=== PATIENT | female | born 1990 | race Caucasian/White ===

== ENCOUNTER 2016-05-23 14:15 | Outpatient (CLI) | payer OTHER ==
[2015-03-23 23:50] VITALS: BP 142/86
--- NOTE | 2016-05-23 17:59 | Diagnostic Imaging Report ---
MARIA C RASHID [facility] [address] [facility] [address] [address] Report Submission Date: May 23, 2016 5:14:17 PM GOLF COURSE ARCHITECT Patient Study Name: BHAVIN DRISCOLL Date: May 23, 2016 2:56:26 PM GOLF COURSE ARCHITECT Modality Type: CR Gender: F Description: SPINE : 86 Institution: [facility] Physician: MARIA C RASHID Cervical spine 3 views History: Acute neck pain Findings: The the cervical spine is unremarkable without fracture, disc space narrowing, subluxation, or prevertebral soft tissue swelling. Electronically signed on May 23, 2016 5:14:17 PM GOLF COURSE ARCHITECT by: Denver TIAN
--- NOTE | 2016-05-23 18:00 | Diagnostic Imaging Report ---
MARIA C RASHID [facility] [address] [facility] [address] [address] Report Submission Date: May 23, 2016 5:13:41 PM CHRISTIAN EDUCATION DIRECTOR Patient Study Name: BHAVIN DRISCOLL Date: May 23, 2016 3:09:22 PM CHRISTIAN EDUCATION DIRECTOR Modality Type: CR Gender: F Description: SHOULDER : 86 Institution: [facility] Physician: MARIA C RASHID Bilateral shoulders, 3 views History: Acute shoulder pain Findings: 3 views of each shoulder are obtained revealing no evidence of fracture, dislocation, arthropathy, or focal bone lesion. Impression: Unremarkable shoulders. Electronically signed on May 23, 2016 5:13:41 PM CHRISTIAN EDUCATION DIRECTOR by: Denver TIAN
== END 2016-05-23 14:16 ==
LOC: RAD 14:15
PROVIDERS: ATTEND Physician Assistant
DX: M25.512 Pain in left shoulder (principal); M54.2 Cervicalgia
CPT/HCPCS: 72040

== ENCOUNTER 2016-08-15 13:47 | Outpatient (CLI) | payer OTHER ==
[2015-03-23 23:50] VITALS: BP 142/86
--- NOTE | 2016-08-15 22:56 | Diagnostic Imaging Report ---
[facility] [address] [facility] [address] Report Submission Date: August 15, 2016 2:28:46 PM CDT Patient Study Name: BHAVIN DRISCOLL Date: August 15, 2016 1:52:17 PM CDT Modality Type: CR Gender: F Description: ABDOMEN : 86 Institution: [facility] Physician MARIA C RASHID Abdomen -two views CLINICAL HISTORY: Abdominal discomfort. Nausea and constipation for 3 weeks. FINDINGS: Examination abdomen in supine and upright views with comparison to examination of 10/19/2012 demonstrates gas and stool in the colon. There is no evidence of obstruction or free air. Visualized visceral silhouettes are within normal limits. Lung bases are clear. Properitoneal fat lines are preserved. Visualized bony structures are intact. IMPRESSION: Negative abdomen. Electronically signed on August 15, 2016 2:28:46 PM CDT by: Timi TIAN
== END 2016-08-15 13:50 ==
LOC: RAD 13:47
PROVIDERS: ATTEND Physician Assistant
DX: K59.09 Other constipation (principal); R10.10 Upper abdominal pain, unspecified
CPT/HCPCS: 74020

== ENCOUNTER 2016-09-15 14:58 | Emergency (ER) | payer OTHER ==
[2016-09-15 15:10] VITALS: BP 119/68
--- NOTE | 2016-09-15 15:43 | Diagnostic Imaging Report ---
[facility] [address] [facility] [address] Report Submission Date: Sep 15, 2016 3:34:58 PM CDT Patient Study Name: BHAVIN DRISCOLL Date: Sep 15, 2016 3:12:57 PM CDT Modality Type: CR Gender: F Description: LOWER EXTREMITY : 86 Institution: [facility] Physician: CALDERON PABON - ER Right ankle 3 views Clinical history pain Technique AP lateral and oblique radiographs of the right ankle Findings: There is no fracture /dislocation. Bone density is normal. Impression negative right ankle Electronically signed on Sep 15, 2016 3:34:58 PM CDT by: Mitchell TIAN
--- NOTE | 2016-09-15 16:12 | ED Physician Documentation ---
General Adult - HISTORIAN Historian: patient - HPI Stated Complaint: ankle pain Chief Complaint: General Adult Onset: hours Timing: still present Severity: moderate Further Comments: yes (Pt is a 26 yo female who rolled her R ankle while walking on a trail earlier today. Pt walked for several hours after the injury. ) - ROS CONST: no problems EYES/ENT: none CVS/RESP: none GI/: none MS/SKIN/LYMPH: ankle swelling (r) - PAST HX Past History: other (bipolar d/o) Surgeries/Procedures: BTL Allergies/Adverse Reactions: Allergies Allergy/AdvReac Type Severity Reaction Status Date / Time clarithromycin [From Biaxin] AdvReac Intermediate Hives Verified 03/23/15 22:31 Home Medications: Ambulatory Orders Medication Instructions Recorded Cetirizine HCl [Zyrtec] 10 mg PO DAILY u2 08/15/16 Omeprazole Magnesium [Prilosec Otc] 20 mg PO DAILY u2 08/15/16 Topiramate [Topamax] 25 mg PO BID u2 08/15/16 - SOCIAL HX Smoking History: cigarettes - FAMILY HX Family History: No - VITAL SIGNS Vital Signs: Vital Signs Temp Pulse Resp BP Pulse Ox 142/86 03/23/15 23:48 - REVIEWED ASSESSMENTS Nursing Assessment Reviewed: Yes Vitals Reviewed: Yes Progress - Progress Progress: X-ray R ankle: neg Ibuprofen 200 mg. Take 3 tablets every 8 hrs with food. Air splint. Crutches as needed. (Pt has crutches at home.) General Adult Physical Exam - PHYSICAL EXAM GENERAL APPEARANCE: mild distress NECK: normal inspection, supple RESPIRATORY: no resp distress BACK: normal inspection SKIN: warm/dry EXTREMITIES: other (R ankle tenderness, FROM) NEURO: oriented X3, motor nml, sensation nml Discharge Clincal Impression: Right ankle sprain Qualifiers: Encounter type: initial encounter Involved ligament of ankle: unspecified ligament Qualified Code(s): S93.401A - Sprain of unspecified ligament of right ankle, initial encounter Referrals: Shirley Busch PA [Primary Care Provider] - Home Medications: Ambulatory Orders Cetirizine HCl [Zyrtec] 10 mg PO DAILY u2 08/15/16 Omeprazole Magnesium [Prilosec Otc] 20 mg PO DAILY u2 08/15/16 Topiramate [Topamax] 25 mg PO BID u2 08/15/16 Condition: Stable Disposition: 01 HOME, SELF-CARE Decision to Admit: NO Decision Time: 15:46
== END 2016-09-15 15:50 | disposition home or self-care (01) ==
LOC: ED 14:58
DX: S93.401A Sprain of unspecified ligament of right ankle, initial encounter (principal); W19.XXXA Unspecified fall, initial encounter; Y93.9 Activity, unspecified; Y99.9 Unspecified external cause status
CPT/HCPCS: 73610; L4350; 99283

== ENCOUNTER 2016-10-24 16:19 | Outpatient (CLI) | payer OTHER ==
[2016-10-24 16:36] LABS: BASOPHILS % 0.5 (0.0-1.5); EOSINOPHILS % 3.1 % (0.0-6.8); MEAN CORPUSCULAR HEMOGLOBIN 29.6 pg (28.0-34.0); MEAN CORPUSCULAR VOLUME 87.6 fl (80.0-100.0); NEUTROPHILS # 5.7 # k/uL (1.4-7.7)
[2016-10-24 16:59] LABS: eGFR (African) > 60; eGFR (Non-African) > 60
== END 2016-10-24 16:20 ==
LOC: LAB 16:19
PROVIDERS: ATTEND Physician Assistant
DX: R53.83 Other fatigue (principal); R03.0 Elevated blood-pressure reading, without diagnosis of hypertension
CPT/HCPCS: 36415; 80053; 84443; 85025; 87045; 87046; 87427; 87493

== ENCOUNTER 2017-10-09 11:44 | Outpatient (CLI) | payer OTHER ==
[2017-10-09 12:46] LABS: eGFR (African) > 60; eGFR (Non-African) > 60
== END 2017-10-09 11:46 ==
LOC: LAB 11:44
PROVIDERS: ATTEND Physician Assistant
DX: R10.30 Lower abdominal pain, unspecified (principal); O92.6 Galactorrhea
CPT/HCPCS: 36415; 80053; 84146; 84443; 87086

== ENCOUNTER 2018-07-06 07:57 | Outpatient (CLI) | payer BC ==
[2018-07-06 08:26] LABS: MEAN CORPUSCULAR HEMOGLOBIN 26.3 pg (28.0-34.0)
[2018-07-06 08:27] LABS: BASOPHILS % 0.7 (0.0-1.5); EOSINOPHILS % 4.6 % (0.0-6.8); NEUTROPHILS # 3.4 # k/uL (1.4-7.7)
[2018-07-06 08:40] LABS: eGFR (Non-African) > 60
== END 2018-07-06 08:00 ==
LOC: LAB 07:57
PROVIDERS: ATTEND Family Medicine
DX: Z00.00 Encounter for general adult medical examination without abnormal findings (principal); Z20.5 Contact with and (suspected) exposure to viral hepatitis
CPT/HCPCS: 36415; 80053; 80061; 84443; 85025; 86803

== ENCOUNTER 2018-10-16 23:54 | Emergency (ER) | payer OTHER ==
--- NOTE | 2018-10-16 23:58 | ED Physician Documentation ---
Allergy Symptoms - HISTORIAN Historian: patient - HPI Stated Complaint: feels her throat is swollen Chief Complaint: Allergic Reaction Onset: hours (2) Duration: continues in ED Associated Symptoms: none Swelling: none Shortness of Breath: none Trouble Swallowing/ Speaking: moderate Identified Cause: yes Context: Food Exposure: none Where: home Further Comments: yes (She believes maybe she had some insect spray on her hands and then she had a cigarette and maybe she had some spray on her cigarette when she smoked that She feels her throat is swollen. No rash or shortnes of air.) - ROS EYES/ENT: none CVS/RESP: none GI/: none CONST: none NEURO/PSYCH: none - PAST HX Prior Allergic Reaction: none Medical History: none Immunizations: UTD Allergies/Adverse Reactions: Allergies Allergy/AdvReac Type Severity Reaction Status Date / Time clarithromycin [From Biaxin] AdvReac Intermediate Hives Verified 10/17/18 00:04 Home Medications: Ambulatory Orders Medication Instructions Recorded Omeprazole Magnesium [Prilosec Otc] 20 mg PO DAILY u2 08/15/16 Fexofenadine HCl [Adelina Allergy] 180 mg PO DAILY PRN u2 10/09/17 - SOCIAL HX Smoking History: non-smoker Alcohol Use: none Drug Use: none - FAMILY HX Family History: No - VITAL SIGNS Vital Signs: Vital Signs Temp Pulse Resp BP Pulse Ox 119/68 09/15/16 15:50 - REVIEWED ASSESSMENTS Nursing Assessment Reviewed: Yes Vitals Reviewed: Yes Progress - Progress Progress: 0053: resting quietly - although after waking she states she has no change in symptoms DG 0106: States she is feeling less swelling in throat and less tingling feeling around the lips. She is has no shortness of breath DG Allergy Symptons Exam - EXAM General Appearance: no acute distress, alert HEENT: ENT nml inspection, pharynx nml Skin: no rash Extremities: non-tender Neck: nml inspection Respiratory: no resp. distress, breath sounds nml. No: respiratory distress, stridor CVS: reg rate & rhythm, heart sounds normal Abdomen: non-tender Neuro: oriented X3, CN's nml as tested Discharge Clincal Impression: Allergic reaction Qualifiers: Encounter type: initial encounter Qualified Code(s): T78.40XA - Allergy, unspecified, initial encounter Referrals: Brittny Banda MD [Primary Care Provider] - 2 Days Comments: 1. Predisone 20 mg take 1 by mouth daily x 5 days 2. Zantac 150 mg take 1 by mouth twice daily x 5 days 3. Clairitin or zyrtec OTC take 1 by mouth daily x 5 days 4. Keep benadryl at home take as directed as needed for symptoms 5. Follow up with PCP In 2-4 days 6. Return to ER for any increasing concerns Condition: Stable Disposition: 01 HOME, SELF-CARE Decision to Admit: NO Date of Decison to Admit: 10/17/18 Decision Time: 01:30
[2018-10-17] MEDS ORDERED: diphenhydrAMINE HCL 25 MG TABLET PO ONE (00:02)
[2018-10-17] MEDS ORDERED: methylPREDNISolone SOD SUCC 125 MG/2 ML VIAL ONE (00:15)
[2018-10-17] MEDS ORDERED: methylPREDNISolone SOD SUCC 125 MG/2 ML VIAL IVP ONE (00:24)
[2018-10-17] MEDS ORDERED: diphenhydrAMINE HCL 50 MG/ML VIAL ONE (00:25)
[2018-10-17] MEDS ORDERED: diphenhydrAMINE HCL 50 MG/ML VIAL IVP ONE (00:25)
[2018-10-17 03:52] VITALS: BP 139/60
== END 2018-10-17 01:32 | disposition home or self-care (01) ==
LOC: ED 23:54
DX: T78.40XA Allergy, unspecified, initial encounter (principal)
CPT/HCPCS: 96374; 96375; 99283; 99284; J1200; Q0163; S1016

== ENCOUNTER 2018-11-20 07:57 | Outpatient (CLI) | payer OTHER ==
[2018-11-20 14:30] LABS: APPEARANCE,URINE CLEAR (CLEAR); COLOR,URINE YELLOW (YELLOW); OCCULT BLOOD,URINE TRACE-INTACT (NEGATIVE)
[2018-11-20 14:31] LABS: UROBILINOGEN URINE 0.2 Eu (0.2-1.0)
== END 2018-11-20 08:00 ==
LOC: LAB 07:57
PROVIDERS: ATTEND Family Medicine
DX: R10.9 Unspecified abdominal pain (principal)
CPT/HCPCS: 81002

== ENCOUNTER 2018-11-30 08:48 | Day surgery (SDC) | payer OTHER ==
[~2018-11-30 08:48] MED LIST: LACTATED RINGERS 1,000 ML IV.SOLN IV ONE; LIDOCAINE HCL 2% PF 100MG/5ML VIAL IJ ONE; PROPOFOL 200 MG/20 ML VIAL IV ONE
[2018-11-30] MEDS ORDERED: ONDANSETRON HCL/PF 4 MG/ 2ML VIAL ONE (09:46)
[2018-11-30] MEDS ORDERED: fentaNYL CITRATE/PF 100 MCG/2 ML INJ. ONE (09:47)
[2018-11-30] MEDS ORDERED: FAMOTIDINE 20 MG/2 ML VIAL IV ONE (09:55)
--- NOTE | 2018-12-02 13:23 | GI Report ---
DATE OF PROCEDURE: 11/30/2018 REFERRING PHYSICIAN: Dr. Banda. PROCEDURE PERFORMED: Endoscopy with biopsies. SURGEON: Macho Montes M.D., Marv. INDICATION FOR PROCEDURE: The patient is a 28-year-old who has frequent vomiting episodes. She gets bloated, uncomfortable sometimes 20 minutes after a meal. She unfortunately continues to use cigarettes, either smokes or vapes. She had endoscopy at the [facility] back in November 2016. At that time she did have some esophagitis and gastritis. Biopsies were apparently negative for H. pylori. She also had a colonoscopy at that time. The patient denies using marijuana. Her has been treated for hepatitis C. She denies being on any pain medications regularly. She does get frequent migraine headaches and usually vomits with those headaches. PROCEDURE MEDICATION: Propofol, as per Anesthesia. DESCRIPTION OF PROCEDURE: The Olympus video endoscope was passed through the esophagus under direct visualization. She has grade II esophagitis at the GE junction. She actually has a large sliding hiatal hernia about 3-4 cm size. Antrum of stomach: There is mild gastritis, biopsy taken for H. pylori even though it was negative in the past. Duodenal bulb, first and second part of the duodenum were examined and were normal. There is some bile present in the stomach. Again, there is decreased motility and a large hiatal hernia. Distal esophagitis again that was also biopsied. The patient tolerated the procedure well. FINDINGS: 1. Distal esophagitis, biopsied. 2. Large hiatal hernia. 3. Gastritis, biopsied. There was bile present. RECOMMENDATIONS: 1. Her PPI to be taken correctly needs to be 15-30 minutes before a meal such as before breakfast or before supper rather than not at bedtime. 2. She needs to sleep with the head of her bed elevated. 3. She needs to discontinue tobacco usage, with her migraines, vomiting, and bloating. 4. Would take an antacid like Gaviscon at bedtime. 5. Weight loss, 15 lbs would be markedly beneficial for her large sliding hiatal hernia. Sometimes they do reduce a little bit. 6. Further recommendations pending biopsy results. MACHO MONTES M.D., Bucky.[email or web address]. BRYANT/dimitri Job#: [id number] Cc: Dr. Banda. [facility]
== END 2018-11-30 12:08 | disposition home or self-care (01) ==
LOC: OPSURG 08:48
PROVIDERS: ATTEND Internal Medicine Gastroenterology
DX: K20.9 Esophagitis, unspecified (principal); K29.70 Gastritis, unspecified, without bleeding; K44.9 Diaphragmatic hernia without obstruction or gangrene
CPT/HCPCS: 43239; J2001; J2704; J7120

== ENCOUNTER 2019-01-13 09:35 | Outpatient (CLI) | payer OTHER ==
--- NOTE | 2019-01-26 13:14 | Diagnostic Imaging Report ---
VIRGIE HERNANDEZ [facility] [address] [address] Report Submission Date: Jan 13, 2019 10:05:27 AM CDT Patient Study Name: BHAVIN DRISCOLL Date: Jan 13, 2019 9:31:14 AM CDT Modality Type: DX Gender: F Description: ANKLE 3 VIEWS OR MORE : 86 Institution: [facility] Physician: VIRGIE HERNANDEZ Exam:? Right ankle 3 views Indication: RT ANKLE, LATERAL AND MEDIAL ANKLE PAIN AFTER INJURY YESTERDAY (Hx) / Note time : 01/13/2019 10:04:05 AM User : Lis Morel RT ANKLE, LATERAL AND MEDIAL ANKLE PAIN AFTER INJURY YESTERDAY (DICOM Hx) (DICOM Hx) ? Findings:? No acute fracture, subluxation, dislocation or other osseous abnormality is identified. Lateral soft tissue swelling is incidentally noted. If clinical symptoms persist follow up examination may be warranted to exclude an occult process. Impression: No acute osseous abnormality. Lateral soft tissue swelling Electronically signed on Jan 13, 2019 10:05:27 AM CDT by: Salty TIAN
== END 2019-01-13 10:00 ==
LOC: RAD 09:35
PROVIDERS: ATTEND Podiatrist Foot & Ankle Surgery
DX: S99.911A Unspecified injury of right ankle, initial encounter (principal); X58.XXXA Exposure to other specified factors, initial encounter
CPT/HCPCS: 73610

== ENCOUNTER 2019-02-27 14:11 | Emergency (ER) | payer OTHER ==
[2019-02-27] MEDS: ONDANSETRON HCL/PF 4 MG/ 2ML VIAL IVP ONE (14:48)
[2019-02-27] MEDS: PANTOPRAZOLE SODIUM 40 MG in SODIUM CHLORIDE 0.9 % (FLUSH) 10 ML IVP ONE (14:48)
[2019-02-27] MEDS: 0.9 % SODIUM CHLORIDE 1,000 ML IV ONE (14:48)
[2019-02-27 14:49] LABS: BASOPHILS % 0.4 % (0.0-1.5); NEUTROPHILS # 2.8 # k/uL (1.4-7.7)
--- NOTE | 2019-02-27 14:54 | ED Physician Documentation ---
Nausea/Vomiting/Diarrhea - HISTORIAN Historian: patient - [facility] Chief Complaint: Nausea,Vomiting,Diarrhea Additional Information: 28 year old female presents with c/o n/v that started 3 days ago with dry heaves. She had diarrhea for 3 days prior to the dry heaves but that has subsided. She denies any fevers but has had chills. She was diagnosed in November with Hiatal hernia s/p endoscopy. She takes metoprolol for palpitations d/t anxiety; and duloxetine for anxiety. Onset: days ago Duration: waxing, waning Timing: gradual onset Context: denies: out of country travel, bad food Severity: moderate - Associated Symptoms Vomiting: other (dry heaves) Diarrhea: mucous (diarrhea lasted 3 days- none x 3 days) Abdominal Pain: aching - ROS CONST: chills. denies: fever CVS/RESP: denies: shortness of breath, cough GI/: none EYES/ENT: none MS/SKIN/LYMPH: denies: joint pain NEURO/PSYCH: headache, anxiety - PAST HX Past History: other (anxiety, hiatal hernia, allergies, anemia) Other History: other (hiatal hernia) Surgeries/Procedures: endoscopy (11/2018), BLT Immunizations: UTD Allergies/Adverse Reactions: Allergies Allergy/AdvReac Type Severity Reaction Status Date / Time cephalexin Allergy Verified 02/27/19 14:30 clarithromycin [From Biaxin] AdvReac Intermediate Hives Verified 02/27/19 14:29 Home Medications: Ambulatory Orders Medication Instructions Recorded Omeprazole Magnesium [Prilosec Otc] 20 mg PO DAILY u2 08/15/16 Fexofenadine HCl [Adelina Allergy] 180 mg PO DAILY PRN u2 10/09/17 Ondansetron HCl Rapdis [Zofran Odt] 4 mg PO Q8H PRN 02/27/19 Promethazine HCl [Phenadoz] 25 mg RC Q6 PRN #10 supp.rect 02/27/19 - SOCIAL HX Smoking History: less than 1 pack/day, other (vapes) Alcohol Use: rarely Drug Use: none - FAMILY HX Family History: none - VITAL SIGNS Vital Signs: Vital Signs Temp Pulse Resp BP Pulse Ox 98.1 F 71 14 112/64 98 02/27/19 15:42 02/27/19 15:42 02/27/19 15:42 02/27/19 15:42 02/27/19 15:42 - REVIEWED ASSESSMENTS Nursing Assessment Reviewed: Yes Vitals Reviewed: Yes ED Results Lab/Radiology - Lab Results Lab Results: Lab Results 02/27/19 02/27/19 02/27/19 15:30 14:45 14:45 WBC 4.90 K/ul K/ul (4.00-12.00) RBC 4.81 M/ul M/ul (3.90-5.20) Hgb 12.8 g/dL g/dL (11.5-16.0) Hct 38.8 % % (34.5-46.5) MCV 81.0 fl fl (80.0-100.0) MCH 26.7 pg L pg (28.0-34.0) MCHC 33.0 g/dL g/dL (30.0-36.0) RDW 12.4 % % (11.3-14.3) Plt Count 356 K/mm3 K/mm3 (130-400) Neut % (Auto) 56.9 % % (39.0-79.0) Lymph % (Auto) 30.0 % % (16.0-50.0) [place] % (Auto) 10.5 % % (0.0-11.0) Eos % (Auto) 2.2 % % (0.0-6.8) Baso % (Auto) 0.4 % % (0.0-1.5) Neut # (Auto) 2.8 # k/uL # k/uL (1.4-7.7) Lymph # (Auto) 1.5 # k/uL # k/uL (0.6-4.0) [place] # (Auto) 0.5 # k/uL # k/uL (0.0-0.9) Eos # (Auto) 0.1 # k/uL # k/uL (0.0-0.6) Baso # (Auto) 0.0 # k/uL # k/uL (0.0-0.5) Sodium 141 mmol/L mmol/L (137-145) Potassium 3.3 mmol/L L mmol/L (3.5-5.1) Chloride 105 mmol/L mmol/L (98-107) Carbon Dioxide 27 mmol/L mmol/L (22-30) Anion Gap 12.3 BUN 16 mg/dL mg/dL (7-17) Creatinine 0.73 mg/dL mg/dL (0.52-1.04) Est GFR ( Amer) > 60 (60 - ) Est GFR (Non-Af Amer) > 60 (60 - ) Glucose 121 mg/dL H mg/dL (74-106) Calcium 9.3 mg/dL mg/dL (8.4-10.2) Total Bilirubin 0.3 mg/dL mg/dL (0.2-1.3) AST 63 U/L H U/L (15-46) ALT 24 U/L U/L (0-35) Alkaline Phosphatase 77 U/L U/L (38-126) Total Protein 7.9 g/dL g/dL (6.3-8.2) Albumin 4.3 g/dL g/dL (3.5-5.0) Urine Color Yellow (YELLOW) Urine Appearance Cloudy H (CLEAR) Urine pH 7.0 (5.0 - 8.0) Ur Specific Collins 1.020 (1.010-1.030) Urine Protein Negative mg/dL mg/dL (NEGATIVE) Urine Ketones 1+ mg/dL H mg/dL (NEGATIVE) Urine Occult Blood 2+ H (NEGATIVE) Urine Nitrite Negative (NEGATIVE) Urine Bilirubin Negative (NEGATIVE) Urine Urobilinogen 1.0 Eu Eu (0.2-1.0) Ur Leukocyte Esterase Negative (NEGATIVE) Urine Glucose Negative mg/dL mg/dL (NEGATIVE) - Orders Orders: ED Orders Category Date Time Status Place IV Lock 1T Care 02/27/19 14:35 Active CBC/PLATELET/DIFF Routine Lab 02/27/19 14:45 Completed CMP Routine Lab 02/27/19 14:45 Completed UA MACRO DIP ONLY Routine Lab 02/27/19 15:30 Completed 0.9 % Sodium Chloride [Normal Saline] 1,000 ml Med 02/27/19 14:35 Discontinued IV Q1H Ondansetron HCl/Pf [Zofran] Med 02/27/19 14:35 Discontinued 4 mg IVP NOW ONE Pantoprazole Sodium [Protonix] 40 mg Med 02/27/19 14:35 Discontinued Sodium Chloride 0.9 % (Flush) [Normal Saline Flush] 10 ml IVP NOW Promethazine HCl [Phenergan] 25 mg Med 02/27/19 15:10 Discontinued 0.9 % Sodium Chloride [Normal Saline] 50 ml IV NOW Nausea Physical Exam - EXAM General Appearance: alert, mild distress EENT: eye inspection normal, ENT inspection normal, pharynx normal, no signs of dehydration, KAYLA Neck: normal inspection, supple Respiratory: breath sounds normal CVS: heart sounds normal Abdomen: non-tender Skin: warm/dry, normal color Extremities: non-tender, normal range of motion, no evidence of injury Neuro/Psych: oriented X3, CN's nml as tested, motor nml, sensation nml, mood/affect nml, cognition normal Discharge Clincal Impression: Viral gastritis Prescriptions: Promethazine HCl [Phenadoz] 25 mg RC Q6 PRN #10 supp.rect PRN Reason: Nausea / Vomiting Referrals: Primary Doctor,No [Primary Care Provider] - 2 Days 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
[2019-02-27 14:59] LABS: eGFR (Non-African) > 60
[2019-02-27] MEDS: PROMETHAZINE HCL 25 MG in 0.9 % SODIUM CHLORIDE 50 ML IV ONE (15:15)
[2019-02-27 15:43] VITALS: BP 112/64
[2019-02-27 23:33] LABS: APPEARANCE,URINE CLOUDY (CLEAR); COLOR,URINE YELLOW (YELLOW); OCCULT BLOOD,URINE 2+ (NEGATIVE)
== END 2019-02-27 15:42 | disposition home or self-care (01) ==
LOC: ED 14:11
DX: A08.4 Viral intestinal infection, unspecified (principal)
CPT/HCPCS: 80053; 81002; 85025; 96361; 96374; 96375; 99284; J2405; J2550; J7030; S1016